=== PATIENT | male | born 1970 | race Caucasian/White ===

== ENCOUNTER 2020-10-05 11:29 | Emergency (ER) | payer OTHER, SELFPAY ==
[2020-10-05 11:39] VITALS: BP 154/94; PULSE 68; RESP 20; TEMP 36.9; O2SAT 99; BMI 26.6
--- NOTE | 2020-10-05 12:39 | ED.BACK ---
HPI - Back Pain/Injury <JUSTA Kasper - Last Filed: 10/05/20 15:13> General Chief Complaint: Back Pain/Injury Stated Complaint: BACK PAIN. SOMETHING HAPPENED DOING YARD WORK Time Seen by Provider: 10/05/20 12:24 Source: patient Limitations: no limitations History of Present Illness HPI Narrative: This is a 50-year-old male, nonsmoker, who has no contributory medical history presents to ED with son with chief complain of acute onset of mid low back pain which occurred when he was shoveling dirt morning at 10:30 a.m.. Patient reports felt sudden sharp pain in mid low back that caused him to collapse on his knees and fell to his side. Patient denies other injuries including head. Patient denies losing consciousness. Patient denies saddle anesthesia, incontinence of bladder or stools. Patient had not had similar pain in the past but occasional back strain. Patient reports no radiation of pain but occasionally he feels any in his bilateral legs. Patient reports pain worst with any movements as forward flexing, extending, rotating of his body, and movement his legs. He states feels better while his sitting and offloading his weight. Patient denies chest pain, breathing difficulty, abdominal pain, or lightheadedness. He denies rash in his back or urinary symptoms. Related Data Previous Rx's Medication Instructions Recorded cyclobenzaprine 10 mg PO BID PRN #10 tab 10/05/20 cyclobenzaprine 10 mg PO BID PRN #10 tab 10/05/20 hydrocodone-acetaminophen 1 tab PO Q8H PRN #7 tab 10/05/20 hydrocodone-acetaminophen 1 tab PO Q8H PRN #7 tab 10/05/20 lidocaine 1 patch TOPICAL DAILY PRN #30 ea 10/05/20 lidocaine 1 patch TOPICAL DAILY PRN #30 ea 10/05/20 Allergies Allergy/AdvReac Type Severity Reaction Status Date / Time No Known Drug Allergies Allergy Verified 10/05/20 11:41 Review of Systems <JUSTA Kasper - Last Filed: 10/05/20 15:13> Review of Systems Narrative: General: Denies fever, chills, fatigue, malaise, sweats. HEENT: Denies sinus pain, ear pain, sore throat, difficulty swallowing, dizziness. Respiratory: Denies dyspnea, cough, wheezing, hemoptysis, sputum. Cardiovascular: Denies chest pain, palpitations, orthopnea, edema. Gastrointestinal: Denies nausea, vomiting, abdominal pain, diarrhea, constipation, melena. : Denies dysuria, frequency, incontinence, hematuria, urinary retention. Musculoskeletal: See HPI Skin: Denies rash, skin lesions, or other. Neurologic: Denies weakness, headache, numbness, change in speech, confusion, seizures, incoordination. Psychiatric: No concerning psychosocial issues. 12-point review of systems is negative except for those stated above. Patient History <JUSTA Kasper - Last Filed: 10/05/20 15:13> Surgical History History of bilateral inguinal hernia repair History of hemorrhoidectomy Social History Smoking Status: Never smoker Smoking Status: Never smoker Substance Use Type: does not use Exam <JUSTA Kasper - Last Filed: 10/05/20 15:13> Narrative Exam Narrative: General appearance: well developed, well nourished, in no acute distress. Head: normocephalic, atraumatic, no scalp lesions, non-tender. ENT: Hearing grossly intact. Airway patent. Neck/Thyroid: neck supple, full range of motion, no visible masses or meningeal signs. No JVD, non-tender without lymphadenopathy. Skin: no suspicious rashes, lesions over visible areas. Warm and dry and appropriate color for ethnicity. Heart: no clubbing, no cyanosis, no edema. S1 and S2 normal. RRR w/o murmurs, clicks, or bruits. Lungs: Breathing even and unlabored. No stridor. No accessory muscles used. Able to speak in full sentences. Chest: normal shape and expansion. Abdomen: non-obese, non-distended. Neurologic: alert and oriented. Cognitive exam, [place] and PNS grossly intact on informal exam. Psych: good eye contact, normal affect. Initial Vital Signs Initial Vital Signs: Vital Signs Temperature 98.5 F 10/05/20 11:39 Pulse Rate 68 10/05/20 11:39 Respiratory Rate 20 10/05/20 11:39 Blood Pressure 154/94 H 10/05/20 11:39 Pulse Oximetry 99 10/05/20 11:39 Back/Spine/Pelvis Back: normal to inspection, back tenderness, No CVA tenderness and No erythema Thoracic/Lumbar Spine: thoracic and lumbar spine normal to inspection, pain with thoraco-lumbar ROM, No paraspinal tenderness, thoraco-lumbar ROM limited, lumbar spinal tenderness and straight leg raise positive (greater than 30 degree) <Frida Brady DO - Last Filed: 10/05/20 19:44> Initial Vital Signs Initial Vital Signs: Vital Signs Temperature 98.5 F 10/05/20 11:39 Pulse Rate 68 10/05/20 11:39 Respiratory Rate 20 10/05/20 11:39 Blood Pressure 154/94 H 10/05/20 11:39 Pulse Oximetry 99 10/05/20 11:39 Scores <JUSTA Kasper - Last Filed: 10/05/20 15:13> GCS Carmen coma scale eye opening: Spontaneous Carmen coma scale verbal response: Orientated Carmen coma scale motor response: Obey commands [place] coma scale total score: 15 Course <JUSTA Kasper - Last Filed: 10/05/20 15:13> Orders Ordered: Discontinued Medications Hydrocodone Bitart/Acetaminophen (Hydrocodone/Acet 5/325 Tablet) 1 tab PO NOW ONE Stop: 10/05/20 12:38 Last Admin: 10/05/20 12:45 Dose: 1 tab Documented by: JOHANA Cyclobenzaprine HCl (Cyclobenzaprine 10 Mg Tablet) 10 mg PO NOW ONE Stop: 10/05/20 12:38 Last Admin: 10/05/20 12:45 Dose: 10 mg Documented by: JOHANA Ketorolac Tromethamine (Ketorolac 30 Mg/Ml Vial) 30 mg IM NOW ONE Stop: 10/05/20 12:38 Last Admin: 10/05/20 12:45 Dose: 30 mg Documented by: JOHANA Lidocaine (Lidocaine Patch 1 Each Adh..Patch) 1 each TOP NOW ONE Stop: 10/05/20 12:39 Last Admin: 10/05/20 12:46 Dose: 1 each Documented by: JOHANA Vital Signs Vital signs: Vital Signs - 8 hr 10/05/20 11:39 Temperature 98.5 F Pulse Rate 68 Respiratory Rate 20 Blood Pressure 154/94 H Pulse Oximetry 99 <Frida Brady DO - Last Filed: 10/05/20 19:44> Orders Ordered: Discontinued Medications Hydrocodone Bitart/Acetaminophen (Hydrocodone/Acet 5/325 Tablet) 1 tab PO NOW ONE Stop: 10/05/20 12:38 Last Admin: 10/05/20 12:45 Dose: 1 tab Documented by: JOHANA Cyclobenzaprine HCl (Cyclobenzaprine 10 Mg Tablet) 10 mg PO NOW ONE Stop: 10/05/20 12:38 Last Admin: 10/05/20 12:45 Dose: 10 mg Documented by: JOHANA Ketorolac Tromethamine (Ketorolac 30 Mg/Ml Vial) 30 mg IM NOW ONE Stop: 10/05/20 12:38 Last Admin: 10/05/20 12:45 Dose: 30 mg Documented by: JOHANA Lidocaine (Lidocaine Patch 1 Each Adh..Patch) 1 each TOP NOW ONE Stop: 10/05/20 12:39 Last Admin: 10/05/20 12:46 Dose: 1 each Documented by: JOHANA Vital Signs Vital signs: Vital Signs - 8 hr 10/05/20 11:39 Temperature 98.5 F Pulse Rate 68 Respiratory Rate 20 Blood Pressure 154/94 H Pulse Oximetry [address] [facility] - Back Pain/Injury <JUSTA Kasper - Last Filed: 10/05/20 15:13> Differential Diagnosis Differential diagnosis: Likely lumbar radiculopathy, sciatica, strain of lumbar region and other (Herniated lumbar disc) Medical Records Attestation: I reviewed the patient's medical records. [facility] Narrative Medical decision making narrative: This is a 50-year-old male who presents to ED with acute low back pain when he was shoveling dirt this morning. Patient reports the sudden and acute severity of pain caused collapsed on his knees and fell on his side but denies other injuries. Physical exam appreciated positive bilateral leg days. There is no rash, deformity, swelling appreciated in his back. Patient has no history of IV drug use or previous back surgeries. Pain is worst with forward flexion, extension, rotation of his back which is likely muscular skeletal pain. Was medicated with Toradol, [place], Flexeril, lidocaine which improved his pain. Patient was able to dress himself and ambulatory. Patient discharged to home with this medications advised to rest for next couple of days. 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 We discussed x-ray test but patient declined the test at this time since patient has no history of osteoporosis or the back pain was not due to traumatic injury. Patient advised to follow-up with PCP and returned precautions discussed which he verbalized understanding. Narcotic pain medication and muscle relaxant medication precautions discussed. Patient in agreement with treatment plan. Discharge Plan Departure Patient Disposition: Home Clinical Impression: Acute low back pain Qualifiers: Back pain laterality: midline Sciatica presence: without sciatica Qualified Code(s): M54.5 - Low back pain Instructions: DI for Low Back Pain Activity Restrictions/Additional Instructions: You have been diagnosed with [low back pain and strain]. What to do: *Take your medications as directed. Please take [id number] Tylenol and or Motrin as needed discomfort. Motrin/ibuprofen 400-600 3 times a day as needed for pain with food. Tylenol 650 mg TID as needed for pain. Please take Flexeril for muscle relaxant as needed. For severe pain you can use [place] as needed which is narcotic pain medication. Use lidocaine patch on affected site as needed for pain stays on for 12 hours and off for 12 hours. Flexeril and [place] could cause drowsiness please take precautions. [place] also can cause constipation. This medication has been transmitted to [facility]. *Follow up with your primary care provider in 2-3 days, call for an appointment. Let them know you were seen in the ED and that we asked you to be seen in follow up. *Return to ED if you have any new, worsening, or concerning symptoms, such as [fever, rash on the chest pain, breathing difficulty, near syncope, numbness to groin, incontinence, weakness to your legs or any acute concerns]. Prescriptions: New cyclobenzaprine 10 mg tablet 10 mg PO BID PRN (Reason: muscle spasm) Qty: 10 RF: 0 hydrocodone-acetaminophen 5-325 mg tablet 1 tab PO Q8H PRN (Reason: pain) Qty: 7 RF: 0 lidocaine 5 % adhesive patch,medicated 1 patch topical DAILY PRN (Reason: pain) Qty: 30 RF: 0 hydrocodone-acetaminophen 5-325 mg tablet 1 tab PO Q8H PRN (Reason: pain) Qty: 7 RF: 0 cyclobenzaprine 10 mg tablet 10 mg PO BID PRN (Reason: muscle spasm) Qty: 10 RF: 0 lidocaine 5 % adhesive patch,medicated 1 patch topical DAILY PRN (Reason: pain) Qty: 30 RF: 0 Referrals: [facility] [Outside] Stand Alone Forms: Work Release Note <Frida Brady DO - Last Filed: 10/05/20 19:44> Cosign ED Attending Cosignature Attestation: I was immediately available in the department for consultation. Documentation has been reviewed.
[2020-10-05] MEDS: HYDROCODONE/ACET 5/325 TABLET 1 TAB PO (12:45)
[2020-10-05] MEDS: KETOROLAC 30 MG/ML VIAL IM (12:45)
[2020-10-05] MEDS: CYCLOBENZAPRINE 10 MG TABLET PO (12:45)
[2020-10-05] MEDS: LIDOCAINE PATCH 1 EACH ADH..PATCH TOP (12:46)
== END 2020-10-05 13:53 | disposition home or self-care (01) ==
PROVIDERS: Emergency Provider Nurse Practitioner Family
DX: M54.5 Low back pain (principal)
CPT/HCPCS: 96372; 99283; J1885